=== PATIENT | male | born 1970 | race Caucasian/White ===

== ENCOUNTER → 2025-04-20 12:01 | Outpatient (REF) | payer OTHER, SELFPAY | LOC: MRI 3T 12:01 | PROVIDERS: ATTENDING PHYSICIAN Surgery; FAMILY PHYSICIAN Family Medicine | DX: R97.20 Elevated prostate specific antigen [PSA] (principal) | CPT/HCPCS: 72197; A9575 ==

== ENCOUNTER 2025-07-04 06:23 | Day surgery (SDC) | payer OTHER, SELFPAY ==
[2025-06-16 12:08] LABS: Hematocrit 45.4 % (39.0-52.0); Hemoglobin 15.1 g/dL (13.0-18.0); Mean Corp Hgb Conc. 33.3 g/dL (33.0-37.0); Mean Corpuscular Volume 83.6 fL (80.0-94.0); Platelet Count 261 10^3/uL (130-400); Red Cell Dist. Width 13.8 % (11.5-14.5)
[2025-06-16 13:02] LABS: Blood Urea Nitrogen 18 mg/dl (9-20); Calcium 9.4 mg/dl (8.4-10.2); Carbon Dioxide 31 mmol/L (22-30); Chloride 102 mmol/L (98-107); Glucose 74 mg/dl (70-99); Potassium 4.6 mmol/L (3.5-5.1); Sodium 138 mmol/L (135-145); eGFR > 60.00
[2025-06-16 14:24] VITALS: BMI 25.6
[2025-07-04] VITALS (11 sets, daily range): BP systolic 117–140; BP diastolic 72–81; BMI 25.6
--- NOTE | 2025-07-04 08:43 | HP.FOC2 ---
Focused History & Physical
Chief Complaint
HPI:
Chief Complaint: Bilateral inguinal hernias
HPI / Indication for Planned Procedure: Patient is a 55-year-old male recently seen in outpatient surgical evaluation secondary to the presence of bilateral inguinal hernias which were confirmed on physical examination. We reviewed treatment
options and the patient wished to pursue operative correction. He presents today for scheduled robotic assisted laparoscopic repair of bilateral inguinal hernias with mesh
Relevant Past Medical History: Other (Partial hearing loss left ear, history of esophageal obstruction, inguinal hernias)
Relevant Social History: Negative
Relevant Family History: Negative
Relevant Past Surgical History: Positive for (Lumbar discectomy)
Review of Systems
Review of Pertinent Systems: All Systems Negative
Medication
See Medication form for detailed medications: Yes
Medication List (including Herbals & OTC):
No Meds [No Current Medications] 02/06/18
Medications Reviewed: Yes
Allergies and Reactions
Patient has Allergies: Yes
Noted Allergies and Reactions:
Allergy/AdvReac Type Severity Reaction Status Date / Time
Penicillins Allergy Hives Verified 06/27/25 09:06
food Allergy Unknown Uncoded 06/27/25 09:06
Pertinent Physical Exam
All Other Systems: Negative
Head/Neck: Normal
Lungs: Normal
Heart: Normal
Abdomen: Other (Bilateral inguinal hernias, reducible)
Extremities: Normal
Neurological: Normal
Diagnosis / Assessment
55-year-old male presenting for scheduled operative correction symptomatic bilateral inguinal hernias
Plan / Procedure
Robotic assisted laparoscopic repair of bilateral inguinal hernias with mesh
Anesthesia/Sedation to be done by Anesthesia Provider: Yes
--- NOTE | 2025-07-04 08:44 | W.SUR.PREOP ---
Pre-Operative Surgical Note
-
I have examined this patient prior to the performance of the scheduled procedure.
The patient's condition is unchanged from the time of the current History and
Physical and the patient is able to undergo the scheduled procedure.
[2025-07-04] MEDS: TYLENOL 1000 MG PO (09:09)
[2025-07-04] MEDS: NORMOSOL-R/PLASMALYTE-A 1000 IV (09:11)
--- NOTE | 2025-07-04 11:21 | W.IMMPOSTOP ---
Addendum entered and electronically signed by Hubert Alex MD 07/09/25 13:56:
#[id number]
Original Note:
Surgical Immed Post Op Note
-
Primary Surgeon: Hubert Alex MD
Assisting Surgeon: Michelle Black NP
Pre-op Diagnosis: Bilateral inguinal hernias
Post-op Diagnosis: Bilateral inguinal hernias; direct
Procedure Performed: Robotic assisted laparoscopic PAMELA repair bilateral inguinal hernias with mesh; 3D max extra-large mid weight
Anesthesia Type: GETA +0.25% Marcaine with epi
Specimen / Cultures: None
Estimated Blood Loss: 10 mL
Complications: None immediate
Operative Findings: Large bilateral direct inguinal hernias. Small lipoma of left spermatic cord reduced and excised to facilitate mesh placement. Plication of pseudosac of left/right direct space with 2-0 PDS STRATAFIX. 3D max extra-large mid
weight mesh repair x 2 secured to Arnav's ligament with 2-0 Vicryl stitch x 2. Peritoneal flaps closed with 2-0 Monocryl STRATAFIX spiral.
Significant bladder distention at the conclusion of surgery -straight catheterized
The assistance of Michelle Black NP was required due to the complexity of the procedure. During the procedure Michelle Black NP assisted with port placement, robotic instrumentation and suture material exchanges, and closure of the surgical
incision sites. I was present for the entirety of the operative procedure.
== END 2025-07-04 15:05 | disposition home or self-care (01) ==
LOC: SDS 06:23
PROVIDERS: ATTENDING PHYSICIAN Surgery; FAMILY PHYSICIAN Nurse Practitioner Acute Care
DX: K40.20 Bilateral inguinal hernia, without obstruction or gangrene, not specified as recurrent (principal)
CPT/HCPCS: 49650; 36415; 80048; 85027; 93005; C1781